=== PATIENT | male | born 1970 ===

== ENCOUNTER 2021-04-16 11:30 | Inpatient (IN) | payer OTHER ==
[~2021-04-16] VITALS: Ht 170.2 cm; Wt 90.7 kg
[2021-04-21] MEDS ORDERED: PERCOCET 5-3251 EACH PO (12:49)
== END 2021-04-21 13:41 | disposition home or self-care (01) | DRG 331 ==
LOC: O/R 04-19 05:14 → SURH 04-19 10:15 → SURG 04-19 16:54 → O/R 04-19 20:24 → SURH 04-19 20:52
PROVIDERS: ADMIT Surgery; ATTEND Surgery
PROC: 07BC4ZX Excision of Pelvis Lymphatic, Percutaneous Endoscopic Approach, Diagnostic (ICD-10-PCS; 2021-04-19)
PROC: 07BC4ZX Excision of Pelvis Lymphatic, Percutaneous Endoscopic Approach, Diagnostic (ICD-10-PCS; 2021-04-19)
PROC: 0DTF4ZZ Resection of Right Large Intestine, Percutaneous Endoscopic Approach (ICD-10-PCS; principal; 2021-04-19 10:15)
DX: D12.0 Benign neoplasm of cecum (principal); R59.0 Localized enlarged lymph nodes; Z20.822 Contact with and (suspected) exposure to COVID-19